=== PATIENT | male | born 1945 | race Caucasian/White ===

== ENCOUNTER → 2023-11-18 08:06 | Outpatient (REF) | payer OTHER, SELFPAY | LOC: WOUND 08:06 | PROVIDERS: ATTENDING PHYSICIAN Surgery; FAMILY PHYSICIAN Internal Medicine | DX: S51.812A Laceration without foreign body of left forearm, initial encounter (principal); N40.1 Benign prostatic hyperplasia with lower urinary tract symptoms; I70.0 Atherosclerosis of aorta; Z90.5 Acquired absence of kidney; X58.XXXA Exposure to other specified factors, initial encounter | CPT/HCPCS: 99203 ==

== ENCOUNTER → 2023-11-25 08:55 | Outpatient (REF) | payer OTHER, SELFPAY | LOC: WOUND 08:55 | PROVIDERS: ATTENDING PHYSICIAN Surgery; FAMILY PHYSICIAN Internal Medicine | DX: S51.812A Laceration without foreign body of left forearm, initial encounter (principal); N40.1 Benign prostatic hyperplasia with lower urinary tract symptoms; I70.0 Atherosclerosis of aorta; Z90.5 Acquired absence of kidney; X58.XXXA Exposure to other specified factors, initial encounter | CPT/HCPCS: 97597 ==

== ENCOUNTER → 2023-12-09 09:56 | Outpatient (REF) | payer OTHER, SELFPAY | LOC: WOUND 09:56 | PROVIDERS: ATTENDING PHYSICIAN Surgery; FAMILY PHYSICIAN Internal Medicine | DX: S51.812A Laceration without foreign body of left forearm, initial encounter (principal); X58.XXXA Exposure to other specified factors, initial encounter | CPT/HCPCS: 11042 ==

== ENCOUNTER → 2023-12-23 10:00 | Outpatient (REF) | payer OTHER, SELFPAY | LOC: WOUND 10:00 | PROVIDERS: ATTENDING PHYSICIAN Surgery; FAMILY PHYSICIAN Internal Medicine | DX: S51.812A Laceration without foreign body of left forearm, initial encounter (principal); N40.1 Benign prostatic hyperplasia with lower urinary tract symptoms; I70.0 Atherosclerosis of aorta; Z90.5 Acquired absence of kidney; W19.XXXA Unspecified fall, initial encounter | CPT/HCPCS: 99213 ==

== ENCOUNTER → 2024-05-06 11:51 | Outpatient (REF) | payer OTHER, SELFPAY | LOC: UCDH 11:51 | PROVIDERS: ATTENDING PHYSICIAN Physician Assistant Medical | DX: M79.672 Pain in left foot (principal) | CPT/HCPCS: 73630 ==

== ENCOUNTER 2025-01-11 11:56 | Emergency (ER) | payer OTHER, SELFPAY ==
[2025-01-11 12:21] VITALS: BP 135/70
[2025-01-11 12:40] LABS: Hematocrit 46.2 % (39.0-52.0); Hemoglobin 15.6 g/dL (13.0-18.0); Mean Corp Hgb Conc. 33.8 g/dL (33.0-37.0); Mean Corpuscular Volume 98.9 fL (80.0-94.0); Nucleated Red Blood Cells % 0 % (-); Platelet Count 152 10^3/uL (130-400); Red Cell Dist. Width 12.0 % (11.5-14.5)
[2025-01-11 12:58] LABS: ALT (SGPT) 39 U/L (0-50); AST (SGOT) 46 U/L (17-59); Albumin 4.2 g/dl (3.5-5.0); Alkaline Phosphatase 69 U/L (38-126); Blood Urea Nitrogen 12 mg/dl (9-20); Calcium 8.5 mg/dl (8.4-10.2); Carbon Dioxide 28 mmol/L (22-30); Chloride 103 mmol/L (98-107); Glucose 100 mg/dl (70-99); Potassium 4.8 mmol/L (3.5-5.1); Sodium 137 mmol/L (135-145); Total Protein 7.0 g/dl (6.3-8.2); eGFR > 60.00
[2025-01-11 13:10] LABS: Troponin I < 0.012 ng/ml
--- NOTE | 2025-01-11 14:05 | ED.GENMED ---
History of Present Illness
General
Chief Complaint: Weakness
Source: patient and spouse
Time Seen by Provider: 01/11/25 13:47
History of Present Illness
History of Present Illness:
80-year-old male presents the emergency department from the urgent care. He was feeling perfectly well until Wednesday morning when he complained of fatigue, slight cough, and low-grade fever. Yesterday and the same symptoms. Today he also had
associated mild sore throat and asked go to the urgent care. His daughter brought him there and his initial blood pressure was 120/75. Then, while waiting, he started to complain that he does not feel good, and they laid him down and noted to be
hypotensive at 75/50. This resolved after short period of time and he denied associated chest pain, shortness of breath, headache, numbness, change in speech, change in vision. At the time, he did note that his right arm was hurting him, but
daughter wonders if this is because he was laying on that side while he was laying on the table. He denies any symptoms at this time. Daughter does state that he has been belching a lot recently. No complaints of chest pain, diaphoresis, back
pain, neck pain, etc. Patient is asymptomatic at this time. He has had poor p.o. intake over the last few days given his recent COVID diagnosis.
Past History
Past History
ED Past Medical History: HTN, Hypercholesterolemia and Other (gout)
Social History
Tobacco: Non-smoker
Alcohol: Occasional
Drug: None
Personal:
Living: with family
Course
Orders/Labs/Results
Orders:
Orders
01/11/25
Electrocardiogram (*1) Stat
Comment: DONE EMR
01/11/25 11:57
Electrocardiogram (*1) Urgent
Reason for Study: Other
Other Reason for Exam: cardiac symptoms, arm pain
01/11/25 11:58
EKG- Treatment ONCE
01/11/25 12:31
Complete Blood Count/With Diff Urgent
Comprehensive Metabolic Panel Urgent
Troponin I Urgent
01/11/25 14:04
0.9% Sodium Chloride 1000 ml [Nss] 1,000 ml IV BOLUS
01/11/25 16:25
Troponin I Urgent
Abnormal Lab Results
01/11/25
12:31
RBC 4.67 L 10^6/uL
(4.70-6.10)
MCV 98.9 H fL
(80.0-94.0)
MCH 33.4 H pg
(27.0-31.0)
Absolute Lymphs (auto) 1.1 L 10^3/uL
(1.2-3.4)
Absolute Monos (auto) 0.9 H 10^3/uL
(0.1-0.6)
Lymphocytes % 18.0 L %
(20.5-51.1)
Monocytes % 14.9 H %
(1.7-9.3)
Glucose 100 H mg/dl
(70-99)
01/11/25 12:31
01/11/25 12:31
Vital Signs
Initial and Last Documented VS:
Initial Vital Signs
Temp Pulse Resp BP Pulse Ox
98.8 F 67 16 135/70 98
01/11/25 12:21 01/11/25 12:21 01/11/25 12:21 01/11/25 12:21 01/11/25 12:21
Last Documented Vital Signs
Temp Pulse Resp BP Pulse Ox
98.8 F 67 16 135/70 98
01/11/25 12:21 01/11/25 12:21 01/11/25 12:21 01/11/25 12:21 01/11/25 14:07
*Pulse Oximetry
SaO2: 98
Oxygen Mode of Delivery: Room air
Update Note
Update Note:
Patient presents to the Emergency Department with ____COVID near syncope, belching
Number and Complexity of Problems Addressed at the Encounter
� Chronic conditions affecting care:
� Acute Exacerbation and/or Progression of Chronic Illness:
� Differential Diagnosis includes: But not limited to dehydration, COVID related lightheadedness, electrolyte disorder, ACS, etc. etc.
Amount and/or Complexity of Data to be Reviewed and Analyzed
� I performed an independent evaluation of and my interpretation is:
EKG: Read by me, sinus bradycardia, no acute ischemia
CT:
Xrays:
Laboratory Studies: Generally unremarkable here, troponin x 2 unremarkable
Other:
� Review of other/old records reveals:
� Clinical information was obtained by an independent historian:
� Prescriptions/Medications Considered but not given:
� Further testing considered but not performed:
Risk of Complications and/or Morbidity or Mortality of Patient Management
� Social determinants of health affecting care:
� Discussion with other providers (PCP, Hospitalists, Consultants, etc):
� Escalation of care including admission/observation vs risk of discharge considered: Patient given IV fluids, troponin x 2 unremarkable, no chest pain, no symptoms here. Suspect vasovagal event earlier today. Discussed with
patient and daughter importance of follow-up and reasons return to the ER
ED Attending Note
-
Portions of this chart may have been created with voice recognition software.� Occasional wrong word or��sound alike� substitutions may have occurred due to the inherent limitations of voice recognition software.
Discharge Plan
Departure
Patient Disposition: Home (Routine Discharge)
Date of Disposition: 01/11/25
Time of Disposition: 16:56
Patient with high blood pressure during this ER visit?: Yes
Condition: Good
Discharge Problem:
COVID, Near syncope
Instructions: Near Fainting, COVID-19 in adults - Discharge instructions, BLOOD PRESSURE
Prescriptions:
No Action
amlodipine [Norvasc] 5 MG tablet
5 mg PO DAILY
simvastatin 20 MG tablet
20 mg PO QPM
ramipril 10 MG capsule
20 mg PO DAILY
Patient Comments:
pt takes 20mg (2 tabs in am) and 10mg (1 tab) in the evening
carvedilol [Coreg] 25 MG tablet
25 mg PO BID
ramipril 10 mg capsule
10 mg PO QPM
multivitamin Tablet
1 tab PO DAILY
polyethylene glycol 3350 [Miralax] 17 gram/dose powder
4 g PO DAILY PRN (Reason: Constipation) Qty: 119 0RF
Rx Instructions:
start a laxative such as MIRALAX on day 2 after surgery if no bowel movement yet as long as no nausea/vomiting and passing gas
oxycodone 5 mg tablet
5 mg PO Q4HPRN PRN (Reason: breakthrough/severe pain) Qty: 5 0RF
acetaminophen [Tylenol Extra Strength] 500 mg tablet
1,000 mg PO Q6HPRN PRN (Reason: mild pain) Qty: 1 0RF
prednisone 20 mg tablet
40 mg PO DAILY 3 Days Qty: 6 0RF
Zyrtec 10 mg capsule
10 mg PO BID 3 Days Qty: 6 0RF
famotidine 20 mg tablet
20 mg PO BID 3 Days Qty: 6 0RF
epinephrine [EpiPen 2-Fran] 0.3 mg/0.3 mL auto-injector
0.3 mg IM Q5-15M PRN (Reason: anaphylaxis) Qty: 2 0RF
Referrals:
Roc Hayes I., DO [Family Provider, Internal Medicine] - Follow up in 5-7 days
Activity Restrictions/Additional Instructions:
IF YOU DEVELOP CHEST PAIN OR PRESSURE, SHORTNESS OF BREATH, SEVERE HEADACHE, DIZZINESS, PALPITATIONS, OR OTHER WORRISOME SIGNS, PLEASE RETURN TO THE ER IMMEDIATELY! HAPPY BIRTHDAY!
Interventions
Interventions:
*Risk Screen - Suicide Last Done: 01/11/25 12:21
*General Assessment Last Done: 01/11/25 15:09
*Neglect/Abuse Screening Last Done: 01/11/25 12:21
*ED- Fall Risk Assessment Last Done: 01/11/25 15:09
*ED COVID-19 Vaccine History Last Done: 01/11/25 15:09
ED- Pulmonary Assessment Last Done: 01/11/25 15:09
ED- Neurological Assessment Last Done: 01/11/25 15:09
ED- Cardiac Assessment Last Done: 01/11/25 15:09
Discharge Date and Time
Print Language: ESTONIAN
[2025-01-11] MEDS: NSS 1000 IV (14:55)
[2025-01-11 16:54] LABS: Troponin I < 0.012 ng/ml
[2025-01-11 18:46] VITALS: BP 141/63
== END 2025-01-11 17:08 | disposition home or self-care (01) ==
LOC: EMR 11:56
PROVIDERS: Emergency Medicine; EMERGENCY PHYSICIAN Emergency Medicine; FAMILY PHYSICIAN Internal Medicine
DX: U07.1 COVID-19 (principal); R55 Syncope and collapse; I10 Essential (primary) hypertension; E78.00 Pure hypercholesterolemia, unspecified
CPT/HCPCS: 99284; 96360; 80053; 84484; 85025; 93005